=== PATIENT | female | born 1955 | race African-American/Black ===

== ENCOUNTER 2017-09-17 14:57 | Emergency (ER) | payer OTHER ==
[~2017-09-17] VITALS: Ht 170.2 cm; Wt 74.0 kg
[~2017-09-17 14:57] MED LIST: FLAGYL500 MG PO; FLEXERIL PO; FLEXERIL10 MG PO; LORTAB 10 PO; NAPROSYN500 MG PO; NO
[2017-09-17 15:30] LABS: HEMATOCRIT 44.4 % (37.0-47.0); HEMOGLOBIN 14.8 g/dl (12.0-16.0); IMMATURE GRANULOCYTES 0.3 % (0.0-1.0); MEAN CELL VOLUME 99.6 fL CALC (80.0-100.0); MEAN CORPUSCULAR HGB 33.2 pG CALC (26.0-32.0); MEAN CORPUSCULAR HGB CONC 33.3 g/L CALC (32.0-36.0); NEUT# 6.12 thou/uL (2.00-7.15); RED BLOOD COUNT 4.46 mill/uL (4.20-5.60); RED CELL DISTRI WIDTH 14.6 % (11.5-15.5)
[2017-09-17 16:23] LABS: ALBUMIN 3.9 g/dL (3.2-5.0); ALKALINE PHOSPHATASE 99 u/l (38-126); AMYLASE 169 u/l (30-110); ANION GAP 13 (6-22 (CALC)); BILIRUBIN, TOTAL 0.5 mg/dL (0.0-1.4); BUN 13 mg/dL (7-17); BUN/CREATININE RATIO 19 (12-20 (CALC)); CALCIUM 9.3 mg/dL (8.4-10.2); CARBON DIOXIDE 25 mmol/l (22-30); CHLORIDE 107 mmol/l (95-108); CREATININE 0.7 mg/dL (0.5-1.0); GFR > 60 ML/MIN (>=60 (CALC)); GFR FOR AFR.AMER. > 60 ML/MIN (>=60 (CALC)); GLUCOSE 125 mg/dL (65-105); LIPASE 46 u/l (23-300); POTASSIUM 3.9 mmol/l (3.5-5.1); SGOT/AST 16 u/l (14-36); SGPT/ALT 23 u/l (9-52); SODIUM 141 mmol/l (137-146); TOTAL PROTEIN 7.2 g/dL (6.3-8.2)
[2017-09-17] MEDS ORDERED: PERCOCET 5/325M1 TAB PO (17:37)
[2017-09-17] MEDS ORDERED: TAMSULOSIN0.4 MG PO (17:37)
[2017-09-17] MEDS ORDERED: CIPROFLOXACN500 MG PO (17:37)
[2017-09-17 17:48] VITALS: BP 99/67
== END 2017-09-17 18:05 | disposition home or self-care (01) | DRG 694 ==
LOC: ED 14:57
PROVIDERS: Emergency Medicine
DX: N20.0 Calculus of kidney (principal); R10.32 Left lower quadrant pain; R10.9 Unspecified abdominal pain

== ENCOUNTER 2017-10-27 16:37 | Emergency (ER) | payer OTHER ==
[~2017-10-27] VITALS: Ht 170.2 cm; Wt 73.2 kg
[~2017-10-27 16:37] MED LIST changes: +CIPROFLOXACN500 MG PO; +PERCOCET 5/325M1 TAB PO; +TAMSULOSIN0.4 MG PO
[2017-10-27] MEDS ORDERED: OXYCODONE HCL15 MG PO (18:24)
[2017-10-27] MEDS ORDERED: MELOXICAM7.5 MG PO (18:24)
[2017-10-27 18:25] LABS: URINE BILIRUBIN - DIPSTICK NEGATIVE (NEGATIVE); URINE BLOOD DIPSTICK NEGATIVE (NEGATIVE); URINE CLARITY CLEAR; URINE COLOR YELLOW; URINE GLUCOSE - DIPSTICK NEGATIVE (NEGATIVE); URINE KETONE TRACE mg/dL (NEGATIVE); URINE LEUK ESTERASE NEGATIVE (NEGATIVE); URINE NITRITE - DIPSTICK NEGATIVE (Negative); URINE PROTEIN - DIPSTICK NEGATIVE (NEG-TRACE); URINE SPECIFIC GRAVITY <=1.005; URINE UROBILINOGEN - DIPSTICK 0.2 E.U./dL (0.2)
[2017-10-27 18:26] LABS: HEMATOCRIT 39.6 % (37.0-47.0); HEMOGLOBIN 13.5 g/dl (12.0-16.0); IMMATURE GRANULOCYTES 0.4 % (0.0-1.0); MEAN CELL VOLUME 95.9 fL CALC (80.0-100.0); MEAN CORPUSCULAR HGB 32.7 pG CALC (26.0-32.0); MEAN CORPUSCULAR HGB CONC 34.1 g/L CALC (32.0-36.0); NEUT# 5.83 thou/uL (2.00-7.15); RED BLOOD COUNT 4.13 mill/uL (4.20-5.60); RED CELL DISTRI WIDTH 14.6 % (11.5-15.5)
[2017-10-27 18:43] LABS: ALBUMIN 4.3 g/dL (3.2-5.0); ALKALINE PHOSPHATASE 91 u/l (38-126); ANION GAP 18 (6-22 (CALC)); BILIRUBIN, TOTAL 0.9 mg/dL (0.0-1.4); BUN 12 mg/dL (7-17); BUN/CREATININE RATIO 19 (12-20 (CALC)); CALCIUM 9.8 mg/dL (8.4-10.2); CARBON DIOXIDE 27 mmol/l (22-30); CHLORIDE 100 mmol/l (95-108); CREATININE 0.7 mg/dL (0.5-1.0); GFR > 60 ML/MIN (>=60 (CALC)); GFR FOR AFR.AMER. > 60 ML/MIN (>=60 (CALC)); GLUCOSE 126 mg/dL (65-105); SGOT/AST 19 u/l (14-36); SGPT/ALT 17 u/l (9-52); SODIUM 140 mmol/l (137-146); TOTAL PROTEIN 7.3 g/dL (6.3-8.2)
[2017-10-27] MEDS ORDERED: PERCOCET 5/325M1 TAB PO (20:05)
[2017-10-27 20:10] VITALS: BP 138/77
== END 2017-10-27 20:10 | disposition home or self-care (01) | DRG 443 ==
LOC: ED 16:37
PROVIDERS: Emergency Medicine
DX: R16.0 Hepatomegaly, not elsewhere classified (principal); R91.8 Other nonspecific abnormal finding of lung field; R10.9 Unspecified abdominal pain; F17.210 Nicotine dependence, cigarettes, uncomplicated

== ENCOUNTER 2017-12-13 10:28 | Emergency (ER) | payer OTHER ==
[~2017-12-13] VITALS: Ht 170.2 cm; Wt 63.4 kg
[~2017-12-13 10:28] MED LIST changes: +MELOXICAM7.5 MG PO; +OXYCODONE HCL15 MG PO
[2017-12-13 11:17] LABS: HEMATOCRIT 33.4 % (37.0-47.0); HEMOGLOBIN 11.2 g/dl (12.0-16.0); IMMATURE GRANULOCYTES 0.5 % (0.0-1.0); MEAN CELL VOLUME 91.5 fL CALC (80.0-100.0); MEAN CORPUSCULAR HGB 30.7 pG CALC (26.0-32.0); MEAN CORPUSCULAR HGB CONC 33.5 g/L CALC (32.0-36.0); NEUT# 10.31 thou/uL (2.00-7.15); RED BLOOD COUNT 3.65 mill/uL (4.20-5.60); RED CELL DISTRI WIDTH 15.5 % (11.5-15.5)
[2017-12-13 11:40] LABS: ALBUMIN 3.9 g/dL (3.2-5.0); ALKALINE PHOSPHATASE 171 u/l (38-126); ANION GAP 19 (6-22 (CALC)); BILIRUBIN, TOTAL 0.7 mg/dL (0.0-1.4); BUN 10 mg/dL (7-17); BUN/CREATININE RATIO 17 (12-20 (CALC)); CARBON DIOXIDE 28 mmol/l (22-30); CHLORIDE 96 mmol/l (95-108); CREATININE 0.6 mg/dL (0.5-1.0); GFR > 60 ML/MIN (>=60 (CALC)); GFR FOR AFR.AMER. > 60 ML/MIN (>=60 (CALC)); LIPASE 26 u/l (23-300); POTASSIUM 3.9 mmol/l (3.5-5.1); SGOT/AST 24 u/l (14-36); SGPT/ALT 23 u/l (9-52); SODIUM 139 mmol/l (137-146); TOTAL PROTEIN 6.9 g/dL (6.3-8.2)
[2017-12-13 13:52] VITALS: BP 124/75
== END 2017-12-13 13:53 | disposition short-term general hospital (02) | DRG 375 ==
LOC: ED 10:28
PROVIDERS: Emergency Medicine
DX: C18.9 Malignant neoplasm of colon, unspecified (principal); C79.89 Secondary malignant neoplasm of other specified sites; R10.84 Generalized abdominal pain; R11.10 Vomiting, unspecified; R19.7 Diarrhea, unspecified; R50.9 Fever, unspecified

== ENCOUNTER 2018-09-11 15:18 | Emergency (ER) | payer OTHER | END 2018-09-11 15:25 | disposition left against medical advice (07) | DRG 951 | LOC: ED 15:18 → LWOBS 15:24 | DX: Z91.19 Patient's noncompliance with other medical treatment and regimen (principal) ==

== ENCOUNTER 2019-07-11 17:47 | Observation (INO) | payer OTHER ==
[~2019-07-11] VITALS: Ht 170.2 cm; Wt 70.5 kg
--- NOTE | 2019-07-11 17:55 | NUR ---
PT TO ROOM WITH A SLOW, STEADY GAIT.
--- NOTE | 2019-07-11 18:51 | NUR ---
ATTEMPTED ACCESS OF IMPLANTED PORT IN R CHEST WALL X 2 UNDER STERILE TECHNIQUE, UNABLE TO OBTAINED BLOOD RETURN PT STATES THEY USED IN WEDS WITH ASPIRATE NOTED, AT BEDSIDE ACCESS REMOVED AND 20G OBTAINED IN LEFT AC ON 1 ATTEMPT LAB WORK OBTAINED AND 2ND SET OF BC OBTAINED WELL, PT TOLERATED WELL
--- NOTE | 2019-07-11 19:05 | NUR ---
ASSUMED CARE. PT RESTING. MEDS BROUGHT TO BEDSIDE AND PT STATES THAT SHE CANNOT TAKE MORPHINE IT IS ORDERED. STATES THAT THEY TOOK HER OFF OF IT BECAUSE OF NERVEOUSNESS.... NOTIFIED
[2019-07-11 19:20] LABS: HEMATOCRIT 35.7 % (37.0-47.0); HEMOGLOBIN 11.7 g/dl (12.0-16.0); IMMATURE GRANULOCYTES 0.4 % (0.0-5.0); MEAN CELL VOLUME 97.5 fL CALC (80.0-100.0); MEAN CORPUSCULAR HGB CONC 32.8 g/L CALC (32.0-36.0); NEUT# 5.67 thou/uL (2.00-7.15); RED BLOOD COUNT 3.66 mill/uL (4.20-5.60); RED CELL DISTRI WIDTH 17.4 % (11.5-15.5)
[2019-07-11 19:45] LABS: ALBUMIN 3.7 g/dL (3.2-5.0); ALKALINE PHOSPHATASE 95 u/l (38-126); ANION GAP 11 (6-22 (CALC)); BILIRUBIN, TOTAL 0.7 mg/dL (0.0-1.4); BUN 15 mg/dL (8-23); BUN/CREATININE RATIO 22 (12-20 (CALC)); CARBON DIOXIDE 25 mmol/l (22-30); CHLORIDE 106 mmol/l (95-108); CREATININE 0.7 mg/dL (0.5-1.0); GFR > 60 ML/MIN (>=60 (CALC)); GFR FOR AFR.AMER. > 60 ML/MIN (>=60 (CALC)); LIPASE 32 u/l (23-300); POTASSIUM 4.1 mmol/l (3.5-5.1); SGOT/AST 17 u/l (9-36); SODIUM 138 mmol/l (137-146); TOTAL PROTEIN 6.6 g/dL (6.3-8.2)
--- NOTE | 2019-07-11 19:55 | NUR ---
PT TO RADIOLOOGY
--- NOTE | 2019-07-11 20:15 | NUR ---
PT RETURNED FROM RADIOLOGY. VSS. RE-ATTACHED TO ALL EQUIP.
--- NOTE | 2019-07-11 20:44 | NUR ---
HR WENT UP TO 153....PT SHIVERING AND HYPERVENTILATING. EKG DONE. DR NOTIFIED. PT THEN CALMED AND WENT TO SLEEP AND VSS. PT PLACED ON NC AT 2 LPM.
--- NOTE | 2019-07-11 21:03 | NUR ---
PT SLEEPING. CM SR.
--- NOTE | 2019-07-11 21:23 | NUR ---
PT ON BEDPAN...UNABLE TO VOID BUT WANTS TO STAY ON IT SHE FEELS LIKE SHE HAS TO GO. WATER RUNNING.
--- NOTE | 2019-07-11 21:36 | NUR ---
PT UNABLE TO VOID ON BP...UP TO BR TO GET SAMPLE.
[2019-07-11 21:45] LABS: URINE BILIRUBIN - DIPSTICK NEGATIVE (NEGATIVE); URINE BLOOD DIPSTICK NEGATIVE (NEGATIVE); URINE COLOR YELLOW; URINE GLUCOSE - DIPSTICK NEGATIVE (NEGATIVE); URINE KETONE NEGATIVE (NEGATIVE); URINE NITRITE - DIPSTICK NEGATIVE (Negative); URINE PH 5.5 (4.5-8.0); URINE PROTEIN - DIPSTICK NEGATIVE (NEG-TRACE); URINE SPECIFIC GRAVITY <=1.005; URINE UROBILINOGEN - DIPSTICK 0.2 E.U./dL (0.2)
[2019-07-11 21:56] LABS: URINE LEUK ESTERASE MODERATE (NEGATIVE)
[2019-07-11 21:57] LABS: URINE BACTERIA FEW hpf; URINE SQUAMOUS EPITHELIAL CELL FEW EPI/hpf (0-FEW); URINE WBC TNTC WBC/hpf (0-5)
[2019-07-11 21:58] LABS: URINE TRICHOMONAS MODERATE hpf
[2019-07-11] MEDS ORDERED: IBUPROFEN 200200 MG PO (22:45)
--- NOTE | 2019-07-11 23:01 | NUR ---
REPORT TO . MARISOL GIVE ANTIBIOT PRIOR TO GOING TO [facility]
--- NOTE | 2019-07-11 23:11 | NUR ---
TO ICU VIA STRETCHER WITH PORTABLE MONITOR.
[2019-07-11 23:23] VITALS: BP 93/63
--- NOTE | 2019-07-11 23:25 | NUR ---
PATIENT ARRIVES VIA ER STRETCHER ACCOMPANIED BY JAKOB HOPE. PATIENT ABLE TO WALK TO BED. ON ROOM AIR, NO SOB NOTED. ALERT AND ORIENTED X4. HEAD TO TOES NURSING ASSESSMENT PERFORMED. ADMISSION COMPLETE. LAC 20 G IV INTACT, SALINE LOCKED. PATIENT ABLE TO ANSWER ALL QUESTIONS, FOLLOWS ALL COMMANDS. COMPLAINS OF "NAGGING PAIN," RATES 5/10 IN RLQ. SR ON TELEMETRY, TEMP 99.5. POC FOR TONIGHT DISCUSSED. CALL LIGHT WITHIN REACH. SELF REPOSITIONS. SFETY PRECAUTIONS ENFORCED. OFFERED A BATH, SHE REPORTS SHE WILL HAVE HER SISTER BRING HER CLOTHES IN MORNING TO BATHE. WILL CONTINUE TO MONITOR.
[2019-07-11 23:38] VITALS: BP 81/59
[2019-07-11 23:53] VITALS: BP 104/64
[2019-07-12] VITALS (7 sets, daily range): BP systolic 82–176; BP diastolic 55–123
--- NOTE | 2019-07-12 01:09 | NUR ---
PATIENT ASSISTED TO AND FROM BATHROOM WITH MINIMAL ASSIST, ABLE TO WALK WITHOUT DIFFICULTY. URINE CLOUDY PALE.
--- NOTE | 2019-07-12 01:37 | NUR ---
PATIENT HAD AN EPISODE IN WHICH SHE STATED, "I'M COLD, i CAN'T BREATHE." SHE WAS TACHYPNEIC, SHIVERING, HR WAS IN THE 160'S, TEMP 98.0, BP 176/123, AND PULSE OX WAS NOT READING, PATIENT HAS BLUE ACRYLIC NAILS. I PLACED PATIENT ON 02 NC 2L AND PLACED A WARM BLANKET. ABOUT 20 MINUTES LATER SHE BECAME CALM, HAD HER EYES CLOSED, SHE STOPPED SHIVERING, HR WAS 117 BPM. PATIENT STATES, "IT STARTS WHEN I'M COLD." ER NURSE HAD MENTIONED IN REPORT PATIENT HAD EPISODES SIMILAR TO THIS ONE IN THE ER. WILL CONTINUE TO MONITOR. CALL LIGHT WITHIN [facility].
--- NOTE | 2019-07-12 04:45 | NUR ---
PATIENT RESTS WITH EYES CLOSED, AROUSES EASILY WITH VERBAL STIMULI. NO COMPLAINTS OF PAIN. NO COMPLAINTS OF PAIN. NO ACUTE DISTRESS SHOWN. AFEBRILE. SR ON TELEMETRY. ON ROOM AIR. CALL LIGHT WITHIN REACH. WILL CONTINUE TO MONITOR.
[2019-07-12 06:13] LABS: HEMATOCRIT 32.3 % (37.0-47.0); HEMOGLOBIN 10.5 g/dl (12.0-16.0); IMMATURE GRANULOCYTES 0.6 % (0.0-5.0); MEAN CELL VOLUME 99.1 fL CALC (80.0-100.0); MEAN CORPUSCULAR HGB 32.2 pG CALC (26.0-32.0); MEAN CORPUSCULAR HGB CONC 32.5 g/L CALC (32.0-36.0); NEUT# 4.13 thou/uL (2.00-7.15); RED BLOOD COUNT 3.26 mill/uL (4.20-5.60); RED CELL DISTRI WIDTH 17.4 % (11.5-15.5)
[2019-07-12 06:26] LABS: ANION GAP 7 (6-22 (CALC)); BUN 10 mg/dL (8-23); BUN/CREATININE RATIO 16 (12-20 (CALC)); CARBON DIOXIDE 27 mmol/l (22-30); CHLORIDE 108 mmol/l (95-108); CREATININE 0.7 mg/dL (0.5-1.0); GFR > 60 ML/MIN (>=60 (CALC)); GFR FOR AFR.AMER. > 60 ML/MIN (>=60 (CALC)); POTASSIUM 3.7 mmol/l (3.5-5.1); SODIUM 139 mmol/l (137-146)
--- NOTE | 2019-07-12 08:00 | NUR ---
PT ASSISTED TO BSC, THEN BACK TO BED. PT A&OX4, ABLE TO MAKE NEEDS KNOWN. PT WITH TEMP 100.5, ASSESSMENT COMPLETED. RESPIRATIONS EVEN/UNLABORED, 02@2LPM VIA NC CONTINUES. SA02@99%. PT COMPLAINS OF R POSTERIOR ABDOMEN PAIN "6 ON 1-[address] MONTERO, NEW ORDERS RECIEVED. CALL LIGHT IN REACH. WILL MONITOR.
--- NOTE | 2019-07-12 11:00 | NUR ---
ASSISTED PT WITH SELF BATHE, FAMILY AT BEDSIDE. PT OFFERS NO COMPLAINTS AT THIS TIME. CALL LIGHT IN REACH. WILL MONITOR.
--- NOTE | 2019-07-12 12:30 | NUR ---
DR. MONTERO AT BEDSIDE FOR ASSESSMENT AND TO DISCUSS PLAN OF CARE, NEW ORDERS RECIEVED. WILL MONITOR.
[2019-07-12] MEDS ORDERED: KEFLEX500 MG PO (12:50)
--- NOTE | 2019-07-12 13:20 | NUR ---
IV site discontinued, cath intact. No edema , no redness, voices no discomfort.
--- NOTE | 2019-07-12 13:39 | NUR ---
Discharge instructions given. Patient verbalizes understanding of same. Discharged in stable condition via Wheelchair to Home with family. All belongings sent with pt. NEW PRESCRIPTION SENT TO [facility].
== END 2019-07-12 13:39 | disposition home or self-care (01) ==
LOC: ED 17:47 → ED-I 22:00 → ED 22:19 → ICU 22:20
PROVIDERS: Family Medicine; ADMIT Internal Medicine; ATTEND Internal Medicine
DX: R10.31 Right lower quadrant pain (principal); A59.00 Urogenital trichomoniasis, unspecified; C18.9 Malignant neoplasm of colon, unspecified; Z79.899 Other long term (current) drug therapy
CPT/HCPCS: J3370; Q9967

== ENCOUNTER 2019-07-12 19:43 | Observation (INO) | payer OTHER ==
[~2019-07-12] VITALS: Ht 170.2 cm; Wt 73.8 kg
[~2019-07-12 19:43] MED LIST changes: +IBUPROFEN 200200 MG PO; +KEFLEX500 MG PO
[2019-07-12 20:52] LABS: HEMATOCRIT 31.9 % (37.0-47.0); HEMOGLOBIN 10.5 g/dl (12.0-16.0); IMMATURE GRANULOCYTES 0.3 % (0.0-5.0); MEAN CELL VOLUME 98.8 fL CALC (80.0-100.0); MEAN CORPUSCULAR HGB 32.5 pG CALC (26.0-32.0); MEAN CORPUSCULAR HGB CONC 32.9 g/L CALC (32.0-36.0); NEUT# 4.89 thou/uL (2.00-7.15); RED BLOOD COUNT 3.23 mill/uL (4.20-5.60); RED CELL DISTRI WIDTH 16.8 % (11.5-15.5)
[2019-07-12 21:10] LABS: ALBUMIN 3.3 g/dL (3.2-5.0); ALKALINE PHOSPHATASE 80 u/l (38-126); AMYLASE 128 u/l (30-110); ANION GAP 11 (6-22 (CALC)); BILIRUBIN, TOTAL 0.6 mg/dL (0.0-1.4); BUN 16 mg/dL (8-23); BUN/CREATININE RATIO 25 (12-20 (CALC)); CARBON DIOXIDE 26 mmol/l (22-30); CHLORIDE 104 mmol/l (95-108); CREATININE 0.6 mg/dL (0.5-1.0); GFR > 60 ML/MIN (>=60 (CALC)); GFR FOR AFR.AMER. > 60 ML/MIN (>=60 (CALC)); LIPASE 45 u/l (23-300); POTASSIUM 3.8 mmol/l (3.5-5.1); SGOT/AST 15 u/l (9-36); SODIUM 136 mmol/l (137-146)
[2019-07-13 00:31] LABS: URINE BILIRUBIN - DIPSTICK NEGATIVE (NEGATIVE); URINE BLOOD DIPSTICK NEGATIVE (NEGATIVE); URINE COLOR YELLOW; URINE GLUCOSE - DIPSTICK NEGATIVE (NEGATIVE); URINE KETONE NEGATIVE (NEGATIVE); URINE PH 6.5 (4.5-8.0); URINE PROTEIN - DIPSTICK NEGATIVE (NEG-TRACE); URINE SPECIFIC GRAVITY <=1.005; URINE UROBILINOGEN - DIPSTICK 0.2 E.U./dL (0.2)
[2019-07-13 00:47] LABS: URINE LEUK ESTERASE SMALL (NEGATIVE)
[2019-07-13 00:48] LABS: URINE NITRITE - DIPSTICK NEGATIVE (Negative)
[2019-07-13 00:50] LABS: URINE SQUAMOUS EPITHELIAL CELL MODERATE EPI/hpf (0-FEW); URINE WBC 50-100 WBC/hpf (0-5)
[2019-07-13 00:51] LABS: URINE BACTERIA MODERATE hpf
[2019-07-13 00:56] VITALS: BP 107/65
[2019-07-13 04:02] VITALS: BP 108/67
[2019-07-13 05:12] LABS: HEMATOCRIT 30.1 % (37.0-47.0); HEMOGLOBIN 9.6 g/dl (12.0-16.0); IMMATURE GRANULOCYTES 0.5 % (0.0-5.0); MEAN CELL VOLUME 99.7 fL CALC (80.0-100.0); MEAN CORPUSCULAR HGB 31.8 pG CALC (26.0-32.0); MEAN CORPUSCULAR HGB CONC 31.9 g/L CALC (32.0-36.0); NEUT# 3.6 thou/uL (2.00-7.15); RED BLOOD COUNT 3.02 mill/uL (4.20-5.60); RED CELL DISTRI WIDTH 17.1 % (11.5-15.5)
[2019-07-13 05:40] LABS: ANION GAP 9 (6-22 (CALC)); BUN 9 mg/dL (8-23); BUN/CREATININE RATIO 15 (12-20 (CALC)); CARBON DIOXIDE 24 mmol/l (22-30); CHLORIDE 109 mmol/l (95-108); CREATININE 0.6 mg/dL (0.5-1.0); GFR > 60 ML/MIN (>=60 (CALC)); GFR FOR AFR.AMER. > 60 ML/MIN (>=60 (CALC)); POTASSIUM 3.5 mmol/l (3.5-5.1); SODIUM 139 mmol/l (137-146)
[2019-07-13 07:51] VITALS: BP 131/78
[2019-07-13 16:04] VITALS: BP 143/96
[2019-07-13 19:17] VITALS: BP 140/76
[2019-07-14 04:46] VITALS: BP 147/83
[2019-07-14 07:10] VITALS: BP 171/91
[2019-07-14 07:50] VITALS: BP 137/89
[2019-07-14] MEDS ORDERED: METRONIDAZOLE500 MG PO (08:18)
[2019-07-14] MEDS ORDERED: TRAMADOL HCL50 MG PO (08:18)
== END 2019-07-14 10:32 | disposition home or self-care (01) ==
LOC: ED 19:43 → ED-I 22:37 → ED 23:29 → MS2 23:32
PROVIDERS: Emergency Medicine; ADMIT Internal Medicine; ATTEND Internal Medicine
DX: R10.31 Right lower quadrant pain (principal); A59.00 Urogenital trichomoniasis, unspecified; C18.9 Malignant neoplasm of colon, unspecified; C78.7 Secondary malignant neoplasm of liver and intrahepatic bile duct
CPT/HCPCS: G0378; J0131; J1956; Q9967

== ENCOUNTER 2019-08-26 08:35 | Emergency (ER) | payer OTHER ==
[~2019-08-26] VITALS: Ht 170.2 cm; Wt 68.6 kg
[~2019-08-26 08:35] MED LIST changes: +METRONIDAZOLE500 MG PO; +TRAMADOL HCL50 MG PO
[2019-08-26] MEDS ORDERED: OXYCODONE30 MG PO (08:53)
[2019-08-26 09:15] LABS: IMMATURE GRANULOCYTES 0.3 % (0.0-5.0); MEAN CELL VOLUME 97.9 fL CALC (80.0-100.0); MEAN CORPUSCULAR HGB CONC 32.7 g/L CALC (32.0-36.0); NEUT# 1.25 thou/uL (2.00-7.15); RED BLOOD COUNT 3.87 mill/uL (4.20-5.60); RED CELL DISTRI WIDTH 18.3 % (11.5-15.5)
[2019-08-26 09:24] LABS: HEMATOCRIT 37.9 % (37.0-47.0); HEMOGLOBIN 12.4 g/dl (12.0-16.0)
[2019-08-26 10:10] VITALS: BP 156/87
== END 2019-08-26 10:10 | disposition home or self-care (01) ==
LOC: ED 08:35
PROVIDERS: Family Medicine
DX: J06.9 Acute upper respiratory infection, unspecified (principal)

== ENCOUNTER 2019-10-15 14:13 | Emergency (ER) | payer OTHER ==
[~2019-10-15] VITALS: Ht 170.2 cm; Wt 68.0 kg
[~2019-10-15 14:13] MED LIST changes: +OXYCODONE30 MG PO
[2019-10-15] MEDS ORDERED: ZITHROMAX250 MG PO (16:23)
[2019-10-15] MEDS ORDERED: TESSALON PERLE100 MG PO (16:23)
[2019-10-15 16:29] VITALS: BP 122/48
== END 2019-10-15 16:29 | disposition home or self-care (01) ==
LOC: ED 14:13
DX: J20.9 Acute bronchitis, unspecified (principal); C18.9 Malignant neoplasm of colon, unspecified; Z79.899 Other long term (current) drug therapy

== ENCOUNTER 2019-11-24 17:43 | Emergency (ER) | payer OTHER ==
[~2019-11-24 17:43] MED LIST changes: +TESSALON PERLE100 MG PO; +ZITHROMAX250 MG PO
[2019-11-24 18:42] VITALS: BP 113/75
[2020-06-24] MEDS ORDERED: BACTRIM DS1 TAB PO (07:35)
[2020-06-24] MEDS ORDERED: NEOSPORI2 EX (07:35)
== END 2019-11-24 18:42 | disposition home or self-care (01) ==
LOC: ED 17:43
DX: Z03.89 Encounter for observation for other suspected diseases and conditions ruled out (principal); C18.9 Malignant neoplasm of colon, unspecified; Z95.828 Presence of other vascular implants and grafts

== ENCOUNTER 2020-06-24 07:10 | Emergency (ER) | payer OTHER ==
[~2020-06-24] VITALS: Ht 170.2 cm; Wt 55.0 kg
[2020-06-24] MEDS ORDERED: [UNRECOGNIZED DRUG - REMARK] PO (07:32)
[2020-06-24] MEDS ORDERED: BACTRIM DS1 TAB PO ×2 (07:35)
[2020-06-24] MEDS ORDERED: NEOSPORI2 EX ×2 (07:35)
[2020-06-24 08:38] VITALS: BP 114/76
== END 2020-06-24 08:57 | disposition home or self-care (01) ==
LOC: ED 07:10
DX: L98.419 Non-pressure chronic ulcer of buttock with unspecified severity (principal); L08.9 Local infection of the skin and subcutaneous tissue, unspecified

== ENCOUNTER 2020-08-21 00:10 | Inpatient (IN) | payer OTHER ==
[2020-08-21] VITALS (26 sets, daily range): BP systolic 72–170; BP diastolic 49–108
[~2020-08-21] VITALS: Ht 170.2 cm; Wt 49.0 kg
[~2020-08-21 00:10] MED LIST changes: +BACTRIM DS1 TAB PO; +NEOSPORI2 EX; +[UNRECOGNIZED DRUG - REMARK] PO
--- NOTE | 2020-08-21 00:11 | NUR ---
BY EMS TO ROOM
--- NOTE | 2020-08-21 00:15 | NUR ---
IV STARTED BY Therese LANDRY RN.
--- NOTE | 2020-08-21 01:12 | NUR ---
IV ATTEMPTED X 2 WITHOUT EFFECT.
--- NOTE | 2020-08-21 01:15 | NUR ---
IV STARTED BY Therese LANDRY RN.
[2020-08-21 01:38] LABS: HEMATOCRIT 33.9 % (37.0-47.0); HEMOGLOBIN 10.6 g/dl (12.0-16.0); IMMATURE GRANULOCYTES 0.5 % (0.0-5.0); MEAN CORPUSCULAR HGB CONC 31.3 g/dL CAL (32.0-36.0); NEUT# 14.91 thou/uL (2.00-7.15); RED BLOOD COUNT 3.21 mill/uL (4.20-5.60); RED CELL DISTRI WIDTH 18.9 % (11.5-15.5)
[2020-08-21 01:40] LABS: MEAN CELL VOLUME 105.6 fL CALC (80.0-100.0)
[2020-08-21 02:15] LABS: ALBUMIN 3.8 g/dL (3.2-5.0); ALKALINE PHOSPHATASE 274 u/l (38-126); AMYLASE 83 u/l (30-110); ANION GAP 15 (6-22 (CALC)); BUN 14 mg/dL (8-23); BUN/CREATININE RATIO 29 (12-20 (CALC)); CARBON DIOXIDE 28 mmol/l (22-30); CHLORIDE 97 mmol/l (95-108); CREATININE 0.5 mg/dL (0.5-1.0); GFR > 60 ML/MIN (>=60 (CALC)); GFR FOR AFR.AMER. > 60 ML/MIN (>=60 (CALC)); LIPASE < 10 u/l (23-300); POTASSIUM 4.2 mmol/l (3.5-5.1); SGOT/AST 39 u/l (9-36); SODIUM 135 mmol/l (137-146); TOTAL PROTEIN 8.2 g/dL (6.3-8.2)
--- NOTE | 2020-08-21 02:15 | NUR ---
PT UP TO BR WITH ASSIST TO OBTAIN URINE. PT UNABLE TO VOID. RETURNED TO BED AND RE-CONNECTED TO EQUIP.
[2020-08-21 02:36] LABS: BILIRUBIN, TOTAL 1.6 mg/dL (0.0-1.4)
--- NOTE | 2020-08-21 02:50 | NUR ---
U/S CALLED AND REPORTED IV NOT FUNCTIONING. KENNY TO CT TO RE-START IV
--- NOTE | 2020-08-21 03:02 | NUR ---
IV RESTARTED BY KENNY IN CT.
--- NOTE | 2020-08-21 04:59 | NUR ---
REPORT TO JAKOB MARKS/ICU
--- NOTE | 2020-08-21 05:15 | NUR ---
TO ICU VIA STRETCHER. PT A/O NAD. LIFTED SELF OVER TO THE BED. IVF AND ANTIBIOTIC INFUSING EN ROUTE TO FLOOR. PT FEELS MUCH BETTER.
--- NOTE | 2020-08-21 05:20 | NUR ---
RECEIVED PT FROM ER, AWAKE AND ALERT, TREMBLING. NO MONITOR IN PLACE. PT TRANSFERRED TO ICU BED WITHOUT INICIDENT.
--- NOTE | 2020-08-21 05:30 | NUR ---
PT PLACED ON MONITOR, HR 160'S. HAD PT COUGH AND BEAR DOWN, NO EFFECT.
--- NOTE | 2020-08-21 06:10 | NUR ---
DR MONTERO CALLED, PT FROM ER WITH PULSE 160, EKG 166 SINUS TACH. ORDERS GIVEN.
--- NOTE | 2020-08-21 06:51 | NUR ---
DR MONTERO CALLED. INFORMED OF DECREASE IN B/P, 81/58. METOPROLOL HELD, PLACED IN [place].
[2020-08-21 07:36] LABS: IMMATURE GRANULOCYTES 0.6 % (0.0-5.0); MEAN CELL VOLUME 106.5 fL CALC (80.0-100.0); MEAN CORPUSCULAR HGB 33.1 pG CALC (26.0-32.0); MEAN CORPUSCULAR HGB CONC 31.1 g/dL CAL (32.0-36.0); NEUT# 15.62 thou/uL (2.00-7.15); RED BLOOD COUNT 2.48 mill/uL (4.20-5.60); RED CELL DISTRI WIDTH 18.8 % (11.5-15.5)
[2020-08-21 07:45] LABS: HEMATOCRIT 26.4 % (37.0-47.0); HEMOGLOBIN 8.2 g/dl (12.0-16.0)
[2020-08-21 08:03] LABS: ALKALINE PHOSPHATASE 182 u/l (38-126); BILIRUBIN, TOTAL 1.4 mg/dL (0.0-1.4); BUN 12 mg/dL (8-23); BUN/CREATININE RATIO 29 (12-20 (CALC)); CHLORIDE 105 mmol/l (95-108); CREATININE 0.4 mg/dL (0.5-1.0); GFR > 60 ML/MIN (>=60 (CALC)); GFR FOR AFR.AMER. > 60 ML/MIN (>=60 (CALC)); POTASSIUM 4.3 mmol/l (3.5-5.1); SGOT/AST 28 u/l (9-36); SODIUM 136 mmol/l (137-146)
[2020-08-21 08:20] LABS: URINE BILIRUBIN - DIPSTICK NEGATIVE (NEGATIVE); URINE BLOOD DIPSTICK NEGATIVE (NEGATIVE); URINE COLOR YELLOW; URINE GLUCOSE - DIPSTICK NEGATIVE (NEGATIVE); URINE KETONE NEGATIVE (NEGATIVE); URINE LEUK ESTERASE NEGATIVE (NEGATIVE); URINE NITRITE - DIPSTICK NEGATIVE (Negative); URINE SPECIFIC GRAVITY 1.015
[2020-08-21 08:21] LABS: URINE PROTEIN - DIPSTICK Trace mg/dL (NEG-TRACE)
[2020-08-21 09:10] LABS: ALBUMIN 2.6 g/dL (3.2-5.0); ANION GAP 13 (6-22 (CALC)); CARBON DIOXIDE 22 mmol/l (22-30); TOTAL PROTEIN 5.6 g/dL (6.3-8.2)
--- NOTE | 2020-08-21 13:32 | NUR ---
THIS MORNING PATIENT WAS IN [place] POSITION D/T LOW BLOOD PRESSURE. PATIENT DENIED ANY DISCOMFORT FROM BLOOD PRESSURE, BUT C/O LEFT ABDOMINAL PAIN WITH REPOSITIONING. SHE STATED THAT PAIN WAS BETTER BECAUSE SHE HAD BEEN GIVEN PAIN MEDICATIONS. EXPLAINED TO PATIENT THAT HER BLOOD PRESSURE WAS LOW, SHE VERB UNDERSTANDING. 0900 DR MONTERO ROUNDED ON PATIENT. 1023 NOTIFIED dR MONTERO, RESULTS OF LACTIC ACID 2.7 AND THAT PATIENT REQUESTING DIET. CALLED LATER ORDERS GIVEN FOR CLEAR LIQUID DIET AND ADVANCE TOLERATED TO DIFFERENT NURSE. PATIENT IS ALERT AND ORIENTED X4, C/O PAIN LEFT ABDOMEN QUAD. NOTIFIED DR MONTERO, HE STATED THAT HE WAS NOT GOING TO ORDER NARCOTICS AT THIS TIME D/T LOW BLOOD PRESSURE. IBUPROFEN GIVEN FOR PAIN.
--- NOTE | 2020-08-21 14:25 | NUR ---
PT HEART RATE INCREASE TO 149-151, 149/93. PATIENT STATED SHE WAS IN PAIN. NOTIFIED DR MONTERO, ORDERS GIVEN FOR DILAUDID 1MG IV.
--- NOTE | 2020-08-21 14:59 | NUR ---
PATIENT GIVEN DILAUDID FOR PAIN AND ELEVATED HEART RATE. BLOOD PRESSURE DOWN TO 74/53, 122, 99.2, 18. NHOTIFIED DR MONTERO, ORDERS GIVEN TO GIVE NS BOLUS FO 250ML, PLACE PT IN [place], D/C DILAUDID, ORDERD LORTAB FOR SERVE PAIN. PATIENT RESTING WITH EYES CLOSED, EASILY AROUSED, DENIES ANY DISCOMFORT.
--- NOTE | 2020-08-21 15:48 | NUR ---
NOTIFIED DR MONTERO, THAT BLOOD PRESSURE HAS NOT IMPROVE WITH THE BOLUS. HE INSTRUCTED WRITTER TO CALL PHARMACY TO "IF LEVOPHED COULD BE GIVEN THROUGH PORT', SPOKE WITH LOKI, [facility] [phone], HE STATED THAT HE WASN'T SURE HE WOULD CALL ME BACK WHEN HE GOT HOME
--- NOTE | 2020-08-21 16:03 | NUR ---
[facility], RETURNED CALL STATED THAT SINCE THE PORT IS A CENTRAL LINE IT SHOULD BE OK
--- NOTE | 2020-08-21 16:09 | NUR ---
[facility] DR [facility]. PATIENT STATED THAT THE PORT HASN'T BEEN USED IN A LONG TIME.
--- NOTE | 2020-08-21 18:34 | NUR ---
PT BLOOD PRESSUR 93/60 NOR EPINEPHINE WAS NOT STARTED BECAUSE MAP >60. ORDERS GIVEN TO ONLY GIVE IF MAP< 60. PATIENT RESTING WITH EYES CLOSED, DENIED DISCOMFORT
--- NOTE | 2020-08-21 19:10 | NUR ---
PATIENT AWAKENS EASILY WHEN SPOKEN TO, ORIENTED X4. FOLLOWS ALL DIRECTIONS, ANSWERS QUESTIONS APPROPRIATELY. POC DISCUSSED, PATIENT UNDERSTANDS AND AGREES. NURSE ASSESSMENT PERFORMED. RAC IV AND RIGHT SUBCLAVIAN POWER PORT INTACT, FLUSH APPROPRIATELY. NS INFUSING AT 150 ML/HR. HR 70'S-80'S. AFEBRILE. BP 100'S SYSTOLIC, PATIENT SAT IN MOREIRA'S POSITION, IS ABLE TO DRINK SIPS OF ICED WATER. TURNS TV ON. SELF REPOSITIONS AT TIMES. COMPLAINS OF RIGHT FLANK PAIN WHEN ASKED IF SHE HAS PAIN, NO PAIN MEDICATION REQUEST AT THIS TIME. CALL LIGHT WITHIN REACH.
--- NOTE | 2020-08-21 19:30 | NUR ---
PATIENT TALKS ON THE PHONE. NO AUTE DISTRESS SHOWN.
--- NOTE | 2020-08-21 20:53 | NUR ---
PT IN NO ACUTE DISTRESS, RATES PAIN 6, DOES NOT WANT PAIN MEDICATION AT THIS TIME. IS AWAKE, TALKATIVE, ICE PROVIDED FOR LEMONADE DRINK AT BEDSIDE. PT REQUESTS FOOD, SHE IS ON A CLEAR LIQUID DIET AND ADVANCED TOLERATED, PT WOULD LIKE PEANUT BUTTER AND CRACKERS WITH CHOCOLATE ENSURE, WILL PROVIDE.
--- NOTE | 2020-08-21 21:06 | NUR ---
PATIENT IN HIGH MOREIRA'S POSITION TO EAT.
--- NOTE | 2020-08-21 22:51 | NUR ---
PATIENT RESTS WITH EYES CLOSED. AWAKENS EASILY WHEN SPOKEN TO. PATIENT'S BP 80'S SYTOLIC, MAP IS 69. PT LAYED IN [place] POSITION. BP CUFF READJUSTED. NO OTHER NEEDS OR COMPLAINTS AT THIS TIME. CALL LIGHT WITHIN REACH.
[2020-08-22] VITALS (19 sets, daily range): BP systolic 104–129; BP diastolic 66–88
--- NOTE | 2020-08-22 | NUR ---
IV ANTIBIOTIC INFUSING NOW. MADY MEDIACTION GIVEN PER PT REQUEST. PT REPOSITIONED. VS WNL. CALL LIGHT WITHIN REACH.
--- NOTE | 2020-08-22 01:00 | NUR ---
PATIENT KILN FIRER HELPER LIGHT TO REQUEST ICE FOR HER LEMONADE. ICE PROVIDED AND MORE LEMONADE POURED INTO CUP. NO ACUTE DISTRESS SHOWN. IS AWAKE AND WATCHES TV. CALLLIGHT WITHIN REACH.
--- NOTE | 2020-08-22 04:15 | NUR ---
PATIENT WAS ASSISTED STANDBY TO BSC, NO DIFFICULTY MANEUVERING TO BSC. PT REQUESTED A BED BATHE, PT ABLE TO BATHE SELF. LINENS CHANGED. PT REPORTED SHE FELT A LOT BETTER AFTER GETTING CLEANED UP. PT VOIDED DARK YELLOW URINE/CLEAR. REQUESTED ICE FOR HER LEMONADE, PROVIDED. AFEBRILE. NO SOB NOTED. WEANED OFF OF O2 2 L/MIN. CALL LIGHT WITHIN REACH.
[2020-08-22 05:17] LABS: ANION GAP 12 (6-22 (CALC)); BUN 14 mg/dL (8-23); BUN/CREATININE RATIO 36 (12-20 (CALC)); CARBON DIOXIDE 23 mmol/l (22-30); CHLORIDE 108 mmol/l (95-108); CREATININE 0.4 mg/dL (0.5-1.0); GFR > 60 ML/MIN (>=60 (CALC)); GFR FOR AFR.AMER. > 60 ML/MIN (>=60 (CALC)); POTASSIUM 4.3 mmol/l (3.5-5.1); SODIUM 139 mmol/l (137-146)
[2020-08-22 05:21] LABS: HEMATOCRIT 25.3 % (37.0-47.0); HEMOGLOBIN 7.6 g/dl (12.0-16.0); IMMATURE GRANULOCYTES 0.7 % (0.0-5.0); MEAN CELL VOLUME 108.1 fL CALC (80.0-100.0); MEAN CORPUSCULAR HGB 32.5 pG CALC (26.0-32.0); NEUT# 12.41 thou/uL (2.00-7.15); RED BLOOD COUNT 2.34 mill/uL (4.20-5.60); RED CELL DISTRI WIDTH 19.6 % (11.5-15.5)
--- NOTE | 2020-08-22 06:09 | NUR ---
PATIENT IS AWAKE. REQUESTS PAIN MEDICATION FOR RIGHT FLANK PAIN, RATES 7/10. LORTAB PO PRN PROVIDED. ANTIBITOIC INFUSING NOW. NO OTHER NEEDS OR COMPLAINTS, ALL VITAL SIGNS WNL. CALL LIGHT WITHIN REACH.
--- NOTE | 2020-08-22 07:42 | NUR ---
PHARMACY CALLED AND VERIFIED THAT ROBERT MAY BE GIVEN THROUGH THE PORT AND SHOULD NO BE COMBINNED WITH ANY OTHER MEDICATION IN [place]
--- NOTE | 2020-08-22 08:58 | NUR ---
SARAHI MANRIQUE PLACED ON PATIENT PER MD ORDER
--- NOTE | 2020-08-22 09:18 | NUR ---
MD AT BEDSIDE AND WILL DC IV FLUIDS AND MONITOR IN ICU TILL AFTERNOON AND TRANSFER TO MED/SURG.
--- NOTE | 2020-08-22 10:17 | NUR ---
PATIENT STATED THAT SHE WAS AWARE THAT HER CANCER WAS METS TO HER LIVER AND TO LUNGS. PATIENT ALSO STATED THAT SHE HAD NO SURGICAL PROCEDURES TO HER COLON.
--- NOTE | 2020-08-22 12:43 | NUR ---
MD GAVE ORDER FOR PATIENT TO TAKE CANCER MEDICATIONS FROM HOME AT BEDSIDE PER HOME ROUTINE.
--- NOTE | 2020-08-22 16:53 | NUR ---
1400 PATIENT RESTING COMFORTABLY. BLOOD PRESSURE HAS BEEN STALE THROUGHOUT THE DAY
--- NOTE | 2020-08-22 16:54 | NUR ---
PATIENT RESTING, VITALS ARE STABLE
--- NOTE | 2020-08-22 18:01 | NUR ---
PATIENT REQUESTED PAIN MEDICATION. PATIENT MEDICATED. PATIENT STATED SHE HAS HAD NO URGE TO URINATE. WILL OFFER TO ASSIST TO BEDSIDE.
--- NOTE | 2020-08-22 18:36 | NUR ---
PATIENT OFFERED TO BE ASSISTED TO BEDSIDE COMMODE. PATIENT REFUSED STATING "i KNOW i WONT HAVE TO GO"
--- NOTE | 2020-08-22 19:45 | NUR ---
PATIENT IS AWAKE, ALERT AND ORIENTED X4. NURSE ASSESSMENT PERFORMED. ON RA, O2 SAT GREATER THAN 95%. NO ACUTE DISTRES SSHOWN. VS WNL. AFEBRILE. POC DISCUSSED FOR TONIGHT. COMPLAINED OF RAC 22 G IV WAS BLOODY, PATIENT HAD BLOOD DRAWN CLOSE TO AREA AND THERE WAS DRY BLOOD ON GAUZE, IV WAS REINFORCED WITH TAPE, FLUSHES PROPERLY AND RETURNS BLOOD, NO REDNESS OR TENDERNESS NOTED, NO PAIN UPON FLUSHING, R-SUBCLAVIAN CHEST PORT ALSO INTACT AND FLUSHES PROPERLY, NO RETURN OF BLOOD PRESENT. SR ON TELEMETRY. SELF REPOSITIONS. SARAHI HOSE IN PLACE. REQUESTS FOR HER FOOD TO BE HEATED SO SHE CAN EAT, FAMILY BROUGHT FOOD FOR HER TODAY. NO COMPLAINTS OF PAIN AT THIS MOMENT. CALL LIGHT WITHIN REACH.
--- NOTE | 2020-08-22 20:21 | NUR ---
PATIENT SITS IN HIGH MOREIRA'S AND IS EATING HER DINNER PROVIDED BY HER FAANNABELLA. NO ACUTE DISTRESS SHOWN.
--- NOTE | 2020-08-22 21:55 | NUR ---
IV SOLUMEDROL GIVEN ON RAC IV, IV INTACT, NO REDNESS OR TENDERNESS NOTED, NO COMPLAINTS OF PAIN AT IV SITE. PT RESTS WITH EYES CLOSED, AWAKENS EASILY WHEN SPOKEN TO. NO ACUTE DISTRESS SHOWN. NO COMPLAINTS OF PAIN.
[2020-08-23] VITALS: BP 141/85
[2020-08-23] MEDS ORDERED: [UNRECOGNIZED DRUG - OTHER] PO (00:52)
[2020-08-23] MEDS ORDERED: TRIFLURIDINE PO (00:53)
[2020-08-23] MEDS ORDERED: [UNRECOGNIZED DRUG - OTHER] PO (00:53)
--- NOTE | 2020-08-23 01:17 | NUR ---
IV ANTIBIOTIC INFUSING NOW. PT ASSISTED STANDBY TO BSC. 600 ML OUT, URINE IS TEA COLORED/CLEAR. PT NOW LAYS ON HER RIGHT SIDE. NO ACUTE DISTRESS SHOWN. NO COMPLAINTS OF PAIN AND DECLINES PAIN MED AT THIS TIME. CALL LIGHT WITHIN REACH.
[2020-08-23 04:00] VITALS: BP 135/79
--- NOTE | 2020-08-23 04:19 | NUR ---
vancomycin infusing now, pt given lortab per pt request for abd pain. pt drinks medication with iced water. no other complaints or needs at this time. call light within reach.
[2020-08-23 05:27] LABS: ANION GAP 12 (6-22 (CALC)); BUN 17 mg/dL (8-23); BUN/CREATININE RATIO 36 (12-20 (CALC)); CARBON DIOXIDE 23 mmol/l (22-30); CHLORIDE 108 mmol/l (95-108); CREATININE 0.5 mg/dL (0.5-1.0); GFR > 60 ML/MIN (>=60 (CALC)); GFR FOR AFR.AMER. > 60 ML/MIN (>=60 (CALC)); POTASSIUM 4.3 mmol/l (3.5-5.1); SODIUM 138 mmol/l (137-146)
[2020-08-23 05:29] LABS: HEMATOCRIT 27.3 % (37.0-47.0); HEMOGLOBIN 8.2 g/dl (12.0-16.0); IMMATURE GRANULOCYTES 1.2 % (0.0-5.0); MEAN CELL VOLUME 105.4 fL CALC (80.0-100.0); MEAN CORPUSCULAR HGB 31.7 pG CALC (26.0-32.0); NEUT# 13.56 thou/uL (2.00-7.15); RED BLOOD COUNT 2.59 mill/uL (4.20-5.60); RED CELL DISTRI WIDTH 19.3 % (11.5-15.5)
--- NOTE | 2020-08-23 06:45 | NUR ---
REPORT RECEIVED FROM SEVERO ROBERT. MOHSEN GAGNON.
--- NOTE | 2020-08-23 06:57 | NUR ---
RAC 22 G IV DISCONTINUED DUE TO LEAKING AT SITE.
[2020-08-23 07:00] VITALS: BP 145/83
--- NOTE | 2020-08-23 07:00 | NUR ---
PT RESTING IN BED AWAKE AND WATCHING TV. PT IS ALERT AND ORIENTED X3,. SHIFT ASSESSMENT COMPLETED AT THIS TIME.IV PATENT X1. CALL LIGHT IN REACH. WILL CONTINUE TO MONITOR.
[2020-08-23] MEDS ORDERED: Levaquin PO (08:24)
[2020-08-23] MEDS ORDERED: METRONIDAZOL500 MG PO (08:24)
--- NOTE | 2020-08-23 08:25 | NUR ---
DR GARDUNO AT BEDSIDE AT THIS TIME.
--- NOTE | 2020-08-23 09:35 | NUR ---
PORT FLUSHED AND DEACCESSED TO RIGHT CHEST
--- NOTE | 2020-08-23 09:40 | NUR ---
DC INSTRUCTIONS REVIEWED WITH PATIENT. PATIENT VERBALIZED UNDERSTANDING.
--- NOTE | 2020-08-23 09:50 | NUR ---
MONEY FROM [employer] RETURNED AND COUNTED TO PATIENT. SIGNATURES RECEIVED AND PAPERWORK GIVEN BACK TO BUSINESS OFFICE.
--- NOTE | 2020-08-23 09:59 | NUR ---
Discharge instructions given. Patient verbalizes understanding of same. Discharged in stable condition via Wheelchair to Home with staff. All belongings sent with pt.
== END 2020-08-23 09:59 | disposition home or self-care (01) | DRG 948 ==
LOC: ED 00:10 → ED-I 03:39 → ED 04:23 → ICU 04:24
PROVIDERS: Emergency Medicine; ADMIT Internal Medicine; ATTEND Internal Medicine
DX: G89.3 Neoplasm related pain (acute) (chronic) (principal); C18.2 Malignant neoplasm of ascending colon; C78.7 Secondary malignant neoplasm of liver and intrahepatic bile duct; C78.00 Secondary malignant neoplasm of unspecified lung; E87.2 Acidosis; I95.9 Hypotension, unspecified; D72.829 Elevated white blood cell count, unspecified; E86.0 Dehydration; D64.9 Anemia, unspecified; Z79.899 Other long term (current) drug therapy; Z20.828 Contact with and (suspected) exposure to other viral communicable diseases
CPT/HCPCS: J3370; Q9967